=== PATIENT | male | born 1975 | race American Indian/Alaskan Native ===

== ENCOUNTER 2016-06-22 04:40 | Emergency (ER) | payer OTHER ==
--- NOTE | 2016-06-22 05:23 | Emergency Department Report ---
Chief Complaint: Extremity Injury, Upper Stated Complaint: R SHOULDER DISLOCATION/PAIN Time Seen by Provider: 06/22/16 05:20 - HPI History of Present Illness: Patient is a 40-year-old male presents to ED complaining of right shoulder pain 1 day. Patient states he was riding on a horse yesterday when he pulled back and fell forward on the floor catching his fall with his right shoulder so he doesn't hit his head. Patient denies loss of consciousness after the event. Patient states he went home. Patient states pain got worse as he got up this morning he could not move her arm patient states pain with movement of right arm. He denies fevers/chills/nausea/vomiting/dizziness/headache/shortness of breath/ chest pain - ROS Review of Systems: As noted in HPI - Exam Vital Signs: Vital Signs 06/22/16 04:59 Temperature 98.1 F Pulse Rate 70 Respiratory 18 Rate Blood Pressure 140/106 O2 Sat by Pulse 98 Oximetry Physical Exam: GENERAL: Alert and oriented x3, no apparent distress, Normal Gait, atraumatic. NECK: Supple. Non edematous, No carotid bruits. No lymphadenopathy or thyromegaly. LUNGS: Symetrical with respiration, No wheezing, no rales or crackles, CTAB. HEART: S1, S2 present, regular rate and rhythm without murmur, no rubs, no gallops. EXTREMITIES/MUSCULOSKELETAL: No cyanosis, clubbing, rash, lesions or edema. Right shoulder [place] lower than the left. Patient unable to sharp right shoulder. Patient unable to lift arm without difficulty. No ecchymosis seen at the shoulder joint MSE screening note: Focused history and physical exam performed. Due to findings the following was ordered: ED Medical Decision Making - Medical Decision Making X-rays ordered. Patient awaiting to be seen by [facility] physician. Possible shoulder dislocation ED Disposition for MSE Condition: Stable
--- NOTE | 2016-06-22 07:48 | XRay Report ---
RIGHT SHOULDER, 3 views: History: Pain after injury. Findings: No comparison. The a.c. joint appears widened measuring up to 8 mm. There is subtle elevation of the distal right clavicle with respect to the acromion. This could represent ligamentous injury at the right a.c. joint. There is normal articulation at the glenohumeral joint. No fracture or dislocation. The soft tissues are unremarkable. IMPRESSION: Probable injury/rupture of the right acromioclavicular ligaments. No displaced fracture is detected.
[2016-06-22] MEDS ORDERED: TORADOL IM ONE (08:25)
[2016-06-22] MEDS ORDERED: PERCOCET 5/325 PO ONE (08:25)
[2016-06-22] MEDS ORDERED: MORPHINE IV ONE (08:27)
[2016-06-22] MEDS ORDERED: ZOFRAN IV ONE (08:27)
[2016-06-22] MEDS ORDERED: TORADOL IV ONE (08:27)
--- NOTE | 2016-06-22 08:30 | Emergency Department Report ---
ED Upper Extremity Inj HPI - General Chief Complaint: Extremity Injury, Upper Stated Complaint: R SHOULDER DISLOCATION/PAIN Time Seen by Provider: 06/22/16 08:18 Source: patient Mode of arrival: Ambulatory Limitations: No Limitations - History of Present Illness Initial Comments: 40 year old male with no significant past medical history presents to the hospital complaining of right shoulder pain. Yesterday he fell off his horse and has had pain to the right shoulder ever since. Pain 10/10 intensity, worse with palpation and movement. No alleviating factors. Patient went to bed with pain and woke up with worsening pain so came to the hospital for evaluation. Denies headache, head injury, syncope, or other injury from fall. Patient is right hand dominant - Related Data Previous Rx's Medication Instructions Recorded Last Taken Type Ibuprofen [Motrin] 800 mg PO Q8HR PRN #30 tablet 06/22/16 Unknown Rx oxyCODONE /ACETAMINOPHEN [Percocet 1 tab PO Q6HR PRN #20 tablet 06/22/16 Unknown Rx 5/325] Allergies Allergy/AdvReac Type Severity Reaction Status Date / Time No Known Allergies Allergy Unverified 06/22/16 08:14 ED Review of Systems ROS: Stated complaint: R SHOULDER DISLOCATION/PAIN Other details as noted in HPI Comment: All other systems reviewed and negative Other: Constitutional: No fevers chills Eyes: No eye pain visual changes ENT: No ear pain or throat pain Neck: Denies pain Respiratory: Denies cough wheezing shortness of breath Cardiovascular: Denies chest pain, palpitations, syncope GI: Denies abdominal pain, nausea, vomiting, diarrhea, constipation : Denies dysuria, urinary frequency, or urgency Musculoskeletal: As per HPI Skin: Denies rash, lesions, erythema Neurologic: Denies headache, numbness, weakness Psychiatric: Denies suicidal ideation, hallucinations Hematological/lymphatic: Denies easy bruising, lymphadenopathy ED Past Medical Hx - Past Medical History Previous Medical History?: No - Surgical History Past Surgical History?: No - Social History Smoking Status: Current Every Day Smoker Substance Use Type: Alcohol - Medications Home Medications: Home Medications Medication Instructions Recorded Confirmed Last Taken Type Ibuprofen [Motrin] 800 mg PO Q8HR PRN #30 tablet 06/22/16 Unknown Rx oxyCODONE /ACETAMINOPHEN [Percocet 1 tab PO Q6HR PRN #20 tablet 06/22/16 Unknown Rx 5/325] ED Physical Exam - General Limitations: No Limitations - Other Other exam information: General: No limitations, patient is alert in no acute distress Head exam: Atraumatic, normocephalic Eyes exam: Normal appearance ENT: Moist mucous membrane, normal oropharynx Neck exam: Normal inspection, full range of motion, no meningismus nontender Respiratory exam: Clear to auscultation bilateral, no wheezes, rales, crackles Cardiovascular: Normal rate and rhythm, normal heart sounds Abdomen: Soft, nondistended, and nontender, with normal bowel sounds, no rebound, or guarding Extremity: No deformity, tenderness to palpation of right shoulder joint anteriorly. Pain with external rotation but worse with ABduction and extension. 2+ radial pulse Back: Normal Inspection, full range of motion, no tenderness Neurologic: Alert, oriented x3, cranial nerves intact, no motor or sensory deficit Psychiatric: normal affect, normal mood Skin: Warm, dry, intact ED Course Vital Signs 06/22/16 06/22/16 06/22/16 04:59 07:36 08:49 Temperature 98.1 F 97.7 F Pulse Rate 70 60 60 Respiratory 18 16 16 Rate Blood Pressure 140/106 Blood Pressure 140/84 122/71 [Left] O2 Sat by Pulse 98 100 100 Oximetry - Reevaluation(s) Reevaluation #1: 06/22/16 08:29 Patient treated morphine, Toradol, and Zofran. Shoulder immobilizer ordered ED Medical Decision Making - Radiology Data Radiology results: report reviewed (right shoulder x-ray: Possible injury status post rupture of right before meals ligament. No displaced fracture is noted) - Medical Decision Making Plan discharge patient on sling/immobilizer, pain medication, and orthopedic referral - Differential Diagnosis fracture, contusion, sprain Critical Care Time: No Critical care attestation.: If time is entered above; I have spent that time in minutes in the direct care of this critically ill patient, excluding procedure time. ED Disposition Clinical Impression: Sprain of right shoulder, AC separation Disposition: DISCHARGED TO HOME OR SELFCARE Is pt being admited?: No Does the pt Need Aspirin: No Condition: Stable Instructions: Acromioclavicular Separation (ED), Shoulder Sprain (ED) Additional Instructions: Take the medication as prescribed. Follow-up with the orthopedic doctor provided or with a doctor of your choice. Return if symptoms worsen Prescriptions: Ibuprofen [Motrin] 800 mg PO Q8HR PRN #30 tablet PRN Reason: Pain oxyCODONE /ACETAMINOPHEN [Percocet 5/325] 1 tab PO Q6HR PRN #20 tablet PRN Reason: Pain Referrals: JOSH COPELAND MD [Staff Physician] - 3-5 Days (orthopedic surgeon) Time of Disposition: 09:23
[2016-06-22 08:49] VITALS: BP 122/71
== END 2016-06-22 09:44 | disposition home or self-care (01) ==
LOC: ED 04:40
DX: S43.101A Unspecified dislocation of right acromioclavicular joint, initial encounter (principal); F17.200 Nicotine dependence, unspecified, uncomplicated; V80.010A Animal-rider injured by fall from or being thrown from horse in noncollision accident, initial encounter; Y93.89 Activity, other specified; Y92.89 Other specified places as the place of occurrence of the external cause; Y99.8 Other external cause status
CPT/HCPCS: 29105; 73030; 96374; 96375; 99283; J1885; J2270; J2405